=== PATIENT | male | born 1975 | race Two or more races ===

== ENCOUNTER 2021-09-15 22:36 | Emergency (ER) | payer SELFPAY ==
[~2021-09-15] VITALS: Ht 160 cm; Wt 72.0 kg
[2021-09-16] MEDS ORDERED: FAMOTIDINE 20 MG TABLET PO ONE (01:00)
[2021-09-16] MEDS ORDERED: METOCLOPRAMIDE HCL 10 MG TABLET PO ONE (01:00)
[2021-09-16] MEDS ORDERED: OMEP20 PO (01:03)
[2021-09-16] MEDS ORDERED: MAG HYDROX/AL HYDROX/SIMETH 30 ML SUSP UDCUP PO ONE (01:15)
[2021-09-16] MEDS ORDERED: BACLOFEN 10 MG TABLET PO ONE (01:45)
[2021-09-16 02:11] VITALS: BP 126/66
[2021-09-16] MEDS ORDERED: METO5TAB87 PO (02:13)
[2021-09-16] MEDS ORDERED: BACL10TA PO (02:49)
== END 2021-09-16 02:45 | disposition home or self-care (01) ==
LOC: EMS 22:38
DX: R06.6 Hiccough (principal)
CPT/HCPCS: 99284; Z7502; Z7610